=== PATIENT | male | born 1980 | race Caucasian/White ===

== ENCOUNTER 2022-06-05 15:48 | Emergency (ER) | payer OTHER ==
[2022-06-05 16:46] LABS: HEMOGLOBIN 12.2 gm/dl (14.0-17.5); RED BLOOD COUNT 4.13 M/UL (4.20-5.50); WHITE BLOOD COUNT 8.1 K/UL (4.5-11.0)
[2022-06-05 17:29] LABS: BUN/CREATININE RATIO 17 (0-10)
[2022-06-05] MEDS ORDERED: PREDNISONE 20 M20 MG PO (19:43)
== END 2022-06-05 20:24 | disposition home or self-care (01) ==
LOC: ER1 15:48
DX: J20.9 Acute bronchitis, unspecified (principal); Z20.822 Contact with and (suspected) exposure to COVID-19; I10 Essential (primary) hypertension; F17.210 Nicotine dependence, cigarettes, uncomplicated
CPT/HCPCS: 0240U; 71045; 80053; 81001; 82550; 82553; 84484; 85025; 93005; 94664; 96374; 99285; J1100

== ENCOUNTER 2022-06-18 14:32 | Emergency (ER) | payer OTHER ==
[~2022-06-18 14:32] MED LIST: PREDNISONE 20 M20 MG PO
[2022-06-18] MEDS ORDERED: FLONASE 0.05% N16 GM (16:52)
[2022-06-18] MEDS ORDERED: ZYRTEC10 MG PO (16:52)
[2022-06-18] MEDS ORDERED: MEDROL DOSEPAK 24 MG PO (16:52)
[2022-06-18] MEDS ORDERED: DELSYM30 MG/5 ML PO (16:52)
== END 2022-06-18 16:57 | disposition home or self-care (01) ==
LOC: ER1 14:32
DX: J06.9 Acute upper respiratory infection, unspecified (principal); Z20.822 Contact with and (suspected) exposure to COVID-19; I10 Essential (primary) hypertension; F17.210 Nicotine dependence, cigarettes, uncomplicated
CPT/HCPCS: 0240U; 71046; 99283